=== PATIENT | male | born 1985 | race American Indian/Alaskan Native ===

== ENCOUNTER 2020-11-03 20:36 | Emergency (ER) | payer OTHER ==
[2020-11-03] MEDS ORDERED: LACTATED RINGERS 1,000 ML IV ONE (20:54)
--- NOTE | 2020-11-03 20:58 | Emergency Department Report ---
ED General Adult HPI - General Chief complaint: Multiple Trauma Stated complaint: FALL/HEAD INJURY PUI?: No Time Seen by Provider: 11/03/20 20:51 Source: patient, police, EMS ( EMS documentation not available at time of chart dictation ), RN notes reviewed Mode of arrival: Stretcher Limitations: Altered Mental Status, Physical Limitation - History of Present Illness Initial comments: The patient was evaluated in the emergency department for symptoms described in the history of present illness. He/she was evaluated in the context of the global COVID-19 pandemic, which necessitated consideration that the patient might be at risk for infection with the virus that causes COVID-19. Institutional protocols and algorithms that pertain to the evaluation of patients at risk for COVID-19 are in a state of rapid change based on information released by regulatory bodies including the CDC and federal and state organizations. These policies and algorithms were followed during the patient's care in the emergency department. Please note that these policies, procedures and recommendations changed on a rapid basis. The patient is a 35-year-old male, who is currently incarcerated and in police custody, reportedly on Coumadin, for history of DVT, who was brought to the hospital by emergency medical services in a cervical collar and backboard, after witnessed fall which is presumably mechanical, at the [facility]. On primary survey: Airway: Patent and intact. Breath sounds: Clear to auscultation bilaterally. Circulation: 2+ pulses in the bilateral upper and lower extremities. Blood pressure systolic 150 mmHg. Disability: Patient confused, moves extremities to command, eyes open spontaneously. Protecting airway. In cervical collar. No midline cervical spine tenderness. 13 points Stevie Coma Score E(3) V(4) M(6) [place] Coma Scale Exposure: No obvious penetrating injuries. Secondary survey: Diffuse abdominal tenderness. T and L-spine tenderness. Good rectal tone. Code trauma is called overhead. Patient confused, therefore, not able to describe the qualitative nature of symptoms, exacerbating factors, relieving factors, or aggravating factors. -: This afternoon Quality: other Consistency: other Improves with: other Worsens with: other Associated Symptoms: confusion - Related Data Previous Rx's Medication Instructions Recorded Last Taken Type HYDROcodone/APAP 5-325 [[place] 1 - 2 each PO Q6HR PRN #20 tablet 01/04/15 Unknown Rx 5-325 mg TAB] Ibuprofen [Motrin 800 MG tab] 800 mg PO Q8HR PRN #20 tablet 01/04/15 Unknown Rx cephALEXin [Keflex] 500 mg PO Q6HR #40 capsule 01/04/15 Unknown Rx Allergies Allergy/AdvReac Type Severity Reaction Status Date / Time No Known Allergies Allergy Unverified 01/04/15 15:19 ED Review of Systems ROS: Stated complaint: FALL/HEAD INJURY Other details as noted in HPI Comment: Unobtainable due to pts medical conditions (Patient is confused) ED Past Medical Hx - Social History Smoking Status: Never Smoker Substance Use Type: Alcohol - Medications Home Medications: Home Medications Medication Instructions Recorded Confirmed Last Taken Type HYDROcodone/APAP 5-325 [[place] 1 - 2 each PO Q6HR PRN #20 tablet 01/04/15 Unknown Rx 5-325 mg TAB] Ibuprofen [Motrin 800 MG tab] 800 mg PO Q8HR PRN #20 tablet 01/04/15 Unknown Rx cephALEXin [Keflex] 500 mg PO Q6HR #40 capsule 01/04/15 Unknown Rx ED Physical Exam - General Limitations: Altered Mental Status, Physical Limitation General appearance: in no apparent distress, lethargic - Head Head exam: Present: atraumatic, normocephalic - Eye Eye exam: Present: normal appearance, PERRL, EOMI - ENT ENT exam: Present: normal exam, normal orophraynx, mucous membranes moist, normal external ear exam - Neck Neck exam: Present: normal inspection. Absent: tenderness, meningismus - Respiratory Respiratory exam: Present: normal lung sounds bilaterally. Absent: respiratory distress, wheezes, rales, rhonchi, stridor - Cardiovascular Cardiovascular Exam: Present: regular rate, normal rhythm, normal heart sounds. Absent: bradycardia, tachycardia, irregular rhythm, systolic murmur, diastolic murmur, rubs, gallop - GI/Abdominal GI/Abdominal exam: Present: soft, tenderness. Absent: distended, guarding, rebound, rigid, pulsatile mass - Rectal Rectal exam: Present: normal inspection, normal rectal tone. Absent: black stool, bloody stool - exam: Present: normal inspection External exam: Present: normal external exam - Extremities Exam Extremities exam: Present: normal inspection, other (2+ pulses noted in the bilateral upper and lower extremities. There is no palpable cord. negative Homans sign. Muscular compartments are soft. The pelvis is stable.). Absent: tenderness, calf tenderness - Back Exam Back exam: Present: normal inspection, vertebral tenderness. Absent: tend erness, CVA tenderness (R), CVA tenderness (L) - Neurological Exam Neurological exam: Present: altered, other (There is no facial droop. Patient groans in response to examination. Moves right arm, and legs. Weak flight attendant strength in left arm. Endorses decreased sensation to light touch left arm.. Detailed neurologic examination not possible secondary to confusion) - Skin Skin exam: Present: warm, dry, intact, normal color. Absent: rash ED Course Vital Signs 11/03/20 11/03/20 21:48 23:31 Temperature 97.2 F L 98.1 F Pulse Rate 86 85 Respiratory 18 18 Rate Blood Pressure 151/71 167/100 [Right] O2 Sat by Pulse 98 98 Oximetry - Reevaluation(s) Reevaluation #1: 11/03/20 22:44 Patient is reassessed. He is awake to name, month, and location. He states he knows where he is. CT scan of the brain, cervical spine, thoracic spine, abdomen pelvis negative. The patient complains of neck pain, and lower back pain. He has 3 out of 5 strength in his left upper extremity. He has weak flight attendant strength in his left upper extremity. He has 5-5 strength in his right upper extremity. Repeat GCS 14 points [place] Coma Score E(3) V(5) M(6) [place] Coma Scale Given left upper extremity weakness, numbness, confusion, cannot rule out spinal cord injury. Patient will require evaluation at a trauma center, that has trauma surgery and spine surgery for consultative services. Given that patient is anticoagulated, there may be a component spinal cord/epidural hematoma. Patient did endorse left upper extremity weakness and numbness to myself We do not have access to MRI imaging at this time, therefore, this patient requires emergent MR imaging, in addition to the aforementioned consultative services. I have contacted our neurosurgeon on-call, Dr. Hendrickson, and discussed this patient's history, physical, imaging studies and pertinent laboratory studies. He is in agreement with plan to transfer to a dedicated trauma center. 11/03/20 22:58 Contacted [facility], and discussed the case with Dr. Machado, their trauma surgeon. We discussed the patient's history, physical, pertinent laboratory studies and imaging studies. He advises that anticoagulation reversal not necessary at this time. Patient is accepted to the [facility]. 11/03/20 23:00 11/03/20 23:28 X-ray the chest negative for acute findings. ct of the L-spine negative for acute findings. 11/04/20 01:16 ED Medical Decision Making - Lab Data Result diagrams: 11/03/20 20:59 11/03/20 20:59 Vital Signs 11/03/20 21:48 Temperature 97.2 F L Pulse Rate 86 Respiratory 18 Rate Blood Pressure 151/71 [Right] O2 Sat by Pulse 98 Oximetry Lab Results 11/03/20 11/03/20 11/03/20 Range/Units 20:59 20:59 20:59 WBC 6.4 (4.5-11.0) K/mm3 RBC 4.31 (3.65-5.03) M/mm3 Hgb 14.4 (11.8-15.2) gm/dl Hct 41.7 (35.5-45.6) % MCV 97 H (84-94) fl MCH 34 H (28-32) pg MCHC 35 H (32-34) % RDW 13.4 (13.2-15.2) % Plt Count 228 (140-440) K/mm3 Lymph % (Auto) 23.2 (13.4-35.0) % [place] % (Auto) 10.0 H (0.0-7.3) % Eos % (Auto) 1.4 (0.0-4.3) % Baso % (Auto) 0.4 (0.0-1.8) % Lymph # (Auto) 1.5 (1.2-5.4) K/mm3 [place] # (Auto) 0.6 (0.0-0.8) K/mm3 Eos # (Auto) 0.1 (0.0-0.4) K/mm3 Baso # (Auto) 0.0 (0.0-0.1) K/mm3 Seg Neutrophils % 65.0 (40.0-70.0) % Seg Neutrophils # 4.2 (1.8-7.7) K/mm3 PT 22.7 H (12.2-14.9) Sec. INR 2.01 H (0.87-1.13) APTT 33.7 (24.2-36.6) Sec. Sodium 135 L (137-145) mmol/L Potassium 4.2 (3.6-5.0) mmol/L Chloride 97.0 L (98-107) mmol/L Carbon Dioxide 26 (22-30) mmol/L Anion Gap 16 mmol/L BUN 13 (9-20) mg/dL Creatinine 0.9 (0.8-1.3) mg/dL Estimated GFR > 60 ml/min BUN/Creatinine Ratio 14 % Glucose 98 (75-100) mg/dL Calcium 9.0 (8.4-10.2) mg/dL Magnesium 2.00 (1.7-2.3) mg/dL Total Bilirubin 0.30 (0.1-1.2) mg/dL AST 16 (5-40) units/L ALT 21 (7-56) units/L Alkaline Phosphatase 96 (35-129) units/L Total Creatine Kinase 174 H (55-170) units/L Troponin T < 0.010 (0.00-0.029) ng/mL Total Protein 8.3 H (6.3-8.2) g/dL Albumin 4.6 (3.9-5) g/dL Albumin/Globulin Ratio 1.2 % TSH (0.270-4.200) mlU/mL Salicylates (2.8-20.0) mg/dL Acetaminophen (10.0-30.0) ug/mL Plasma/Serum Alcohol (0-0.07) % Blood Type 11/03/20 11/03/20 11/03/20 Range/Units 20:59 20:59 20:59 WBC (4.5-11.0) K/mm3 RBC (3.65-5.03) M/mm3 Hgb (11.8-15.2) gm/dl Hct (35.5-45.6) % MCV (84-94) fl MCH (28-32) pg MCHC (32-34) % RDW (13.2-15.2) % Plt Count (140-440) K/mm3 Lymph % (Auto) (13.4-35.0) % Plumas % (Auto) (0.0-7.3) % Eos % (Auto) (0.0-4.3) % Baso % (Auto) (0.0-1.8) % Lymph # (Auto) (1.2-5.4) K/mm3 [place]umas # (Auto) (0.0-0.8) K/mm3 Eos # (Auto) (0.0-0.4) K/mm3 Baso # (Auto) (0.0-0.1) K/mm3 Seg Neutrophils % (40.0-70.0) % Seg Neutrophils # (1.8-7.7) K/mm3 PT (12.2-14.9) Sec. INR (0.87-1.13) APTT (24.2-36.6) Sec. Sodium (137-145) mmol/L Potassium (3.6-5.0) mmol/L Chloride (98-107) mmol/L Carbon Dioxide (22-30) mmol/L Anion Gap mmol/L BUN (9-20) mg/dL Creatinine (0.8-1.3) mg/dL Estimated GFR ml/min BUN/Creatinine Ratio % Glucose (75-100) mg/dL Calcium (8.4-10.2) mg/dL Magnesium (1.7-2.3) mg/dL Total Bilirubin (0.1-1.2) mg/dL AST (5-40) units/L ALT (7-56) units/L Alkaline Phosphatase (35-129) units/L Total Creatine Kinase (55-170) units/L Troponin T (0.00-0.029) ng/mL Total Protein (6.3-8.2) g/dL Albumin (3.9-5) g/dL Albumin/Globulin Ratio % TSH (0.270-4.200) mlU/mL Salicylates < 0.3 L (2.8-20.0) mg/dL Acetaminophen 6.3 L (10.0-30.0) ug/mL Plasma/Serum Alcohol < 0.01 (0-0.07) % Blood Type 11/03/20 11/03/20 Range/Units 20:59 20:59 WBC (4.5-11.0) K/mm3 RBC (3.65-5.03) M/mm3 Hgb (11.8-15.2) gm/dl Hct (35.5-45.6) % MCV (84-94) fl MCH (28-32) pg MCHC (32-34) % RDW (13.2-15.2) % Plt Count (140-440) K/mm3 Lymph % (Auto) (13.4-35.0) % [place] % (Auto) (0.0-7.3) % Eos % (Auto) (0.0-4.3) % Baso % (Auto) (0.0-1.8) % Lymph # (Auto) (1.2-5.4) K/mm3 [place] # (Auto) (0.0-0.8) K/mm3 Eos # (Auto) (0.0-0.4) K/mm3 Baso # (Auto) (0.0-0.1) K/mm3 Seg Neutrophils % (40.0-70.0) % Seg Neutrophils # (1.8-7.7) K/mm3 PT (12.2-14.9) Sec. INR (0.87-1.13) APTT (24.2-36.6) Sec. Sodium (137-145) mmol/L Potassium (3.6-5.0) mmol/L Chloride (98-107) mmol/L Carbon Dioxide (22-30) mmol/L Anion Gap mmol/L BUN (9-20) mg/dL Creatinine (0.8-1.3) mg/dL Estimated GFR ml/min BUN/Creatinine Ratio % Glucose (75-100) mg/dL Calcium (8.4-10.2) mg/dL Magnesium (1.7-2.3) mg/dL Total Bilirubin (0.1-1.2) mg/dL AST (5-40) units/L ALT (7-56) units/L Alkaline Phosphatase (35-129) units/L Total Creatine Kinase (55-170) units/L Troponin T (0.00-0.029) ng/mL Total Protein (6.3-8.2) g/dL Albumin (3.9-5) g/dL Albumin/Globulin Ratio % TSH 2.560 (0.270-4.200) mlU/mL Salicylates (2.8-20.0) mg/dL Acetaminophen (10.0-30.0) ug/mL Plasma/Serum Alcohol (0-0.07) % Blood Type A POSITIVE Vital Signs 11/03/20 21:48 Temperature 97.2 F L Pulse Rate 86 Respiratory 18 Rate Blood Pressure 151/71 [Right] O2 Sat by Pulse 98 Oximetry - EKG Data -: EKG Interpreted by [place] EKG shows normal: sinus rhythm Rate: normal - EKG Data When compared to previous EKG there are: previous EKG unavailable 11/03/20 22:06 EKG interpreted at 21: 57 Sinus rhythm, 73 bpm. Normal axis, normal intervals, not a STEMI, early repolarization. No prior for comparison - Radiology Data Radiology results: pending, report reviewed, image reviewed CT BRAIN: 11/03/2020 INDICATION / CLINICAL INFORMATION: Trauma. COMPARISON: None available. FINDINGS: BRAIN/INTRACRANIAL STRUCTURES: Unenhanced CT images of the brain demonstrate no evidence of acute intracranial abnormality. Ventricles and sulci are normal in size and shape. There is no evidence of intracranial hemorrhage or mass. There are no abnormal extra-axial fluid collections. EXTRACRANIAL STRUCTURES: Unremarkable. IMPRESSION: No acute abnormality. All CT scans at this location are performed using dose reduction to ALARA by means of automated exposure control. Signer Name: Javad Cope MD Signed: 11/03/2020 8:36 PM Workstation Name: [id number] CT CERVICAL SPINE: 11/03/2020 INDICATION / CLINICAL INFORMATION: fall ams back pain. COMPARISON: None available. FINDINGS: CT images of the cervical spine were obtained. Images are evaluated in the axial, coronal, and sagittal planes. There is no evidence of acute abnormality. Vertebral body height and alignment is well preserved. There is no evidence of fracture or dislocation. CRANIOCERVICAL JUNCTION: Unremarkable. PARASPINAL STRUCTURES: Unremarkable IMPRESSION: Negative exam All CT scans at this location are performed using dose reduction to ALARA by means of automated exposure control. Signer Name: Javad Cope MD Signed: 11/03/2020 8:38 PM Workstation Name: [id number] [facility] [address] [place] [address] Cat Scan Report Signed Patient: CAYETANO KLEIN MR#: [id number] : 1985 Acct:[id number] Age/Sex: 35 / M ADM Date: 11/03/20 Loc: ED Attending Dr: Ordering Physician: HANNY DENNIS MD Date of Service: 11/03/20 Procedure(s): CT thoracic spine wo con Accession Number(s): [id number] cc: HANNY DENNIS MD CT THORACIC SPINE: 11/03/2020 INDICATION / CLINICAL INFORMATION: fall ams back pain. COMPARISON: None available. FINDINGS: CT images of the thoracic spine were obtained. Images are evaluated in the axial, coronal, and sagittal planes. There is no evidence of acute abnormality. Right convex scoliosis is present. Delores graph vertebral body height and alignment is otherwise normal. PARASPINAL STRUCTURES: Unremarkable IMPRESSION: Negative exam All CT scans at this location are performed using dose reduction to ALARA by means of automated exposure control. Signer Name: Javad Cope MD Signed: 11/03/2020 10:03 PM Workstation Name: [id number] Transcribed By: BENNY Dictated By: Javad Cope MD Electronically Authenticated By: Javad Cope MD Signed Date/Time: 11/03/202202 DD/ 01 Critical care attestation.: If time is entered above; I have spent that time in minutes in the direct care of this critically ill patient, excluding procedure time. ED Disposition Clinical Impression: Anticoagulated, Medical clearance for incarceration, Left arm weakness, Confusion Fall Qualifiers: Encounter type: initial encounter Qualified Code(s): W19.XXXA - Unspecified fall, initial encounter Abdominal pain Qualifiers: Abdominal location: generalized Qualified Code(s): R10.84 - Generalized abdominal pain Disposition: DC/TX-02 SHRT-TRM GEN HOSP IP Is pt being admited?: No Does the pt Need Aspirin: No Condition: Serious Referrals: PRIMARY CARE, [Primary Care Provider] - 3-5 Days
[2020-11-03 21:10] LABS: Basophils % (Auto) 0.4 % (0.0-1.8); Eosinophils # (Auto) 0.1 K/mm3 (0.0-0.4); Eosinophils % (Auto) 1.4 % (0.0-4.3); Hematocrit 41.7 % (35.5-45.6); Hemoglobin 14.4 gm/dl (11.8-15.2); Lymphocytes # (Auto) 1.5 K/mm3 (1.2-5.4); Lymphocytes % (Auto) 23.2 % (13.4-35.0); Mean Corpuscular HGB Conc 35 % (32-34); Mean Corpuscular Volume 97 fl (84-94); Monocytes # (Auto) 0.6 K/mm3 (0.0-0.8); Platelet Count 228 K/mm3 (140-440); Red Blood Count 4.31 M/mm3 (3.65-5.03); Red Cell Distribution Width 13.4 % (13.2-15.2)
[2020-11-03 21:21] LABS: INR 2.01 (0.87-1.13)
[2020-11-03 21:22] LABS: Partial Thromboplastin Time 33.7 Sec. (24.2-36.6)
[2020-11-03 21:28] LABS: Alanine Aminotransferase 21 units/L (7-56); Albumin 4.6 g/dL (3.9-5); BUN/Creatinine Ratio 14; Blood Urea Nitrogen 13 mg/dL (9-20); Hemolysis Index 9
--- NOTE | 2020-11-03 21:41 | Cat Scan Report ---
CT BRAIN: 11/03/2020 INDICATION / CLINICAL INFORMATION: Trauma. COMPARISON: None available. FINDINGS: BRAIN/INTRACRANIAL STRUCTURES: Unenhanced CT images of the brain demonstrate no evidence of acute int racranial abnormality. Ventricles and sulci are normal in size and shape. There is no evidence of intracranial hemorrhage or mass. There are no abnormal extra-axial fluid austyn ections. EXTRACRANIAL STRUCTURES: Unremarkable. IMPRESSION: No acute abnormality. All CT scans at this location are performed using dose reduction to ALARA by means of automated expos ure control. Signer Name: Javad Cope MD Signed: 11/03/2020 9:36 PM Workstation Name: [id number]
--- NOTE | 2020-11-03 21:42 | Cat Scan Report ---
CT CERVICAL SPINE: 11/03/2020 INDICATION / CLINICAL INFORMATION: fall ams back pain. COMPARISON: None available. FINDINGS: CT images of the cervical spine were obtained. Images are evaluated in the axial, coronal, and sagitt al planes. There is no evidence of acute abnormality. Vertebral body height and alignment is well preserved. There is no evidence of fracture or dislocation. CRANIOCERVICAL JUNCTION: Unremarkable. PARASPINAL STRUCTURES: Unremarkable IMPRESSION: Negative exam All CT scans at this location are performed using dose reduction to ALARA by means of automated expos ure control. Signer Name: Javad Cope MD Signed: 11/03/2020 9:38 PM Workstation Name: [id number]
--- NOTE | 2020-11-03 22:07 | Cat Scan Report ---
CT THORACIC SPINE: 11/03/2020 INDICATION / CLINICAL INFORMATION: fall ams back pain. COMPARISON: None available. FINDINGS: CT images of the thoracic spine were obtained. Images are evaluated in the axial, coronal, and sagitt al planes. There is no evidence of acute abnormality. Right convex scoliosis is present. Delores graph vertebral body height and alignment is otherwise normal. PARASPINAL STRUCTURES: Unremarkable IMPRESSION: Negative exam All CT scans at this location are performed using dose reduction to ALARA by means of automated expos ure control. Signer Name: Javad Cope MD Signed: 11/03/2020 10:03 PM Workstation Name: [id number]
--- NOTE | 2020-11-03 22:25 | Cat Scan Report ---
CT ABDOMEN AND PELVIS WITH CONTRAST INDICATION / CLINICAL INFORMATION: Fall with back pain, abd pain, Pt on Coumadin, A.M.S.. TECHNIQUE: Axial CT images were obtained through the abdomen and pelvis after IV contrast. All CT scans at this location are performed using CT dose reduction for ALARA by means of automated exposure control. COMPARISON: None available. FINDINGS: LOWER CHEST: No significant abnormality. LIVER: No significant abnormality. GALLBLADDER: No significant abnormality. BILE DUCTS: No significant abnormality. PANCREAS: No significant abnormality. SPLEEN: No significant abnormality. ADRENALS: No significant abnormality. RIGHT KIDNEY / URETER: No significant abnormality. LEFT KIDNEY / URETER: No significant abnormality. STOMACH / SMALL BOWEL: No significant abnormality. COLON: No significant abnormality. APPENDIX: No significant abnormality. PERITONEUM: No free fluid. No free air. No fluid collection. LYMPH NODES: No significant adenopathy. AORTA / ARTERIES: No significant abnormality. IVC / VEINS: No significant abnormality. URINARY BLADDER: No significant abnormality. REPRODUCTIVE ORGANS: No significant abnormality. ADDITIONAL FINDINGS: None. SKELETAL SYSTEM: No significant abnormality. Specifically no evidence of displaced fractures or aggre ssive osseous lesions. IMPRESSION: 1. No acute traumatic injury to the abdomen or pelvis. Please see above for full details. Signer Name: Que Caballero MD Signed: 11/03/2020 10:21 PM Workstation Name: [id number]
[2020-11-03] MEDS ORDERED: fentaNYL 100 MCG/2 ML INJ IV ONE (23:01)
--- NOTE | 2020-11-03 23:12 | Cat Scan Report ---
CT LUMBAR SPINE WITHOUT CONTRAST INDICATION: Back pain/injury after fall. Altered mental status. COMPARISON: None available. TECHNIQUE: Axial, coronal and sagittal CT imaging of the lumbar spine without contrast was performed. All CT scans at this location are performed using CT dose reduction for ALARA by means of automated exposure control. FINDINGS: VERTEBRAE:No acute fracture. Normal alignment. DISC SPACES: No significant abnormality. FACET JOINTS:No significant abnormality. CENTRAL CANAL: No central canal stenosis or neural foraminal narrowing. SOFT TISSUES:No significant abnormality. ADDITIONAL FINDINGS: None IMPRESSION: 1. No acute findings. Signer Name: Sea Paz MD Signed: 11/03/2020 11:07 PM Workstation Name: [id number]
--- NOTE | 2020-11-03 23:12 | XRay Report ---
CHEST 1 VIEW 11/03/2020 9:57 PM INDICATION / CLINICAL INFORMATION: Chest pain/injury after fall. Altered mental status. COMPARISON: None available. FINDINGS: SUPPORT DEVICES: None. HEART / MEDIASTINUM: No significant abnormality. LUNGS / PLEURA: Clear lungs. No significant pleural effusion. No pneumothorax. ADDITIONAL FINDINGS: No significant additional findings. IMPRESSION: 1. No acute abnormality of the chest. Signer Name: Sea Paz MD Signed: 11/03/2020 11:08 PM Workstation Name: [id number]
[2020-11-03 23:32] VITALS: BP 167/100
--- NOTE | 2020-11-04 10:52 | Electrocardiograph Report ---
[facility] Test Date: 2020-11-03 Test Time: 21:57:51 Pat Name: CAYETANO KLEIN Department: Room: Gender: M [employer] Operator: DARNELL : 1985 Requested By: HANNY DENNIS Order Number: [id number] Reading MD: Pedro Cornell Measurements Intervals [place] Rate: 73 P: 69 AR: 148 QRS: 52 QRSD: 94 T: 45 QT: 368 QTc: 407 Interpretive Statements Sinus rhythm ST elev, probable normal early repol pattern No previous ECG available for comparison Electronically Signed On 11-04-2020 10:51:38 EDT by Pedro Cornell
== END 2020-11-03 23:59 | disposition short-term general hospital (02) ==
LOC: EEVIPCON 20:36 → ED 20:36
DX: R10.84 Generalized abdominal pain (principal); R53.1 Weakness; R41.0 Disorientation, unspecified; R51.9 Headache, unspecified; Z79.01 Long term (current) use of anticoagulants; Z79.899 Other long term (current) drug therapy; W19.XXXA Unspecified fall, initial encounter; Y93.89 Activity, other specified; Y92.89 Other specified places as the place of occurrence of the external cause; Y99.8 Other external cause status
CPT/HCPCS: 36415; 70450; 71045; 72125; 72128; 72131; 74177; 80053; 82550; 83735; 84443; 84484; 85025; 85610; 85730; 86850; 86900; 86901; 93005; 96360; 99285; J7120; Q9967; 80320; G0480

== ENCOUNTER 2021-03-23 00:57 | Emergency (ER) | payer SELFPAY | END 2021-03-23 01:30 | disposition left against medical advice (07) | LOC: ED 00:57 | DX: S51.811A Laceration without foreign body of right forearm, initial encounter (principal); Z53.21 Procedure and treatment not carried out due to patient leaving prior to being seen by health care provider; X58.XXXA Exposure to other specified factors, initial encounter; Y93.89 Activity, other specified; Y92.89 Other specified places as the place of occurrence of the external cause; Y99.8 Other external cause status ==

== ENCOUNTER 2021-03-24 01:11 | Emergency (ER) | payer SELFPAY ==
[2021-03-24] MEDS ORDERED: NEOMY 3.5 MG/BACIT 400 UNITS/POLY B 5000 UNITS/GM OINT PACKET TP ONE (02:44)
[2021-03-24] MEDS ORDERED: IBUPROFEN 600 MG TAB PO ONE (02:44)
[2021-03-24] MEDS ORDERED: SULFAMETHOXAZOLE/TRIMETHOPRIM 800/160MG DS TAB PO ONE (02:45)
--- NOTE | 2021-03-24 02:46 | Emergency Department Report ---
ED Upper Extremity Inj HPI - General Chief Complaint: Wound/Laceration Stated Complaint: LACERATION TO RT ARM Source: patient Mode of arrival: Ambulatory Limitations: No Limitations - History of Present Illness Initial Comments: Patient is a 35-year-old -Thai male with no past medical history presents to the ED with complaint of acute onset persistent right forearm pain and bleeding laceration after he fell on a glass table when wrestling about 26 hours ago. Patient states that the bleeding though well controlled at this time but the wound is still open and wanted to be evaluated. Patient states that he was wrestling when he was pushed and he fell on a glass table. Patient states that he is up-to-date with all his tetanus vaccinations. Patient denies dizz iness, syncope, loss of consciousness, nausea and vomiting, alcoholic intoxication, chest pain or shortness of breath, neck pain or headache or back pain. MD Complaint: Injury to:: right, forearm (Bleeding laceration) -: Sudden, hour(s) (26) Other Extremity Injury: Forearm: Right (Bleeding laceration wound) Other Injuries: none Handedness: right Place: home Severity scale (0 -10): 8 Improves With: movement Worsens With: none Context: fall, injury, sports-related injury (Fell on a glass table during wrestling) Associated Symptoms: denies other symptoms. denies: weakness, numbness, neck pain, suspects foreign body, nausea/vomiting, heard/felt popping sensat - Related Data Previous Rx's Medication Instructions Recorded Last Taken Type HYDROcodone/APAP 5-325 [[place] 1 - 2 each PO Q6HR PRN #20 tablet 01/04/15 Unknown Rx 5-325 mg TAB] Ibuprofen [Motrin 800 MG tab] 800 mg PO Q8HR PRN #20 tablet 01/04/15 Unknown Rx cephALEXin [Keflex] 500 mg PO Q6HR #40 capsule 01/04/15 Unknown Rx Acetaminophen/Codeine [Tylenol 1 tab PO Q6H PRN #12 tab 03/24/21 Unknown Rx /Codeine # 3 tab] Ibuprofen [Motrin] 800 mg PO Q8HR PRN #30 tablet 03/24/21 Unknown Rx Sulfamethoxazole/Trimethoprim 1 each PO Q12H #20 tablet 03/24/21 Unknown Rx [Bactrim DS TAB] Allergies Allergy/AdvReac Type Severity Reaction Status Date / Time No Known Allergies Allergy Verified 03/24/21 02:43 ED Review of Systems ROS: Stated complaint: LACERATION TO RT ARM Other details as noted in HPI Constitutional: denies: chills, fever Eyes: denies: eye pain, eye discharge, vision change ENT: denies: ear pain, throat pain Respiratory: denies: cough, shortness of breath, wheezing Cardiovascular: denies: chest pain, palpitations Endocrine: no symptoms reported Gastrointestinal: denies: abdominal pain, nausea, diarrhea Genitourinary: denies: urgency, dysuria Musculoskeletal: arthralgia (Right forearm pain due to bleeding laceration wound), myalgia. denies: back pain, joint swelling Skin: other (Bleeding right forearm laceration wound). denies: rash, lesions Neurological: denies: headache, weakness, paresthesias Psychiatric: denies: anxiety, depression Hematological/Lymphatic: denies: easy bleeding, easy bruising ED Past Medical Hx - Past Medical History Hx Hypertension: Yes Hx CVA: No Hx Heart Attack/AMI: No Hx Congestive Heart Failure: No Hx Diabetes: No Hx Deep Vein Thrombosis: Yes Hx Pulmonary Embolism: No Hx GERD: No Hx Liver Disease: No Hx Renal Disease: No Hx Sickle Cell Disease: No Hx Arthritis: No Hx Headaches / Migraines: No Hx Seizures: No Hx Kidney Stones: No Hx Psychiatric Treatment: No Hx Asthma: No Hx COPD: No Hx Dementia: No Hx HIV: No - Surgical History Past Surgical History?: No - Social History Smoking Status: Never Smoker Substance Use Type: None - Medications Home Medications: Home Medications Medication Instructions Recorded Confirmed Last Taken Type HYDROcodone/APAP 5-325 [[place] 1 - 2 each PO Q6HR PRN #20 tablet 01/04/15 Unknown Rx 5-325 mg TAB] Ibuprofen [Motrin 800 MG tab] 800 mg PO Q8HR PRN #20 tablet 01/04/15 Unknown Rx cephALEXin [Keflex] 500 mg PO Q6HR #40 capsule 01/04/15 Unknown Rx Acetaminophen/Codeine [Tylenol 1 tab PO Q6H PRN #12 tab 03/24/21 Unknown Rx /Codeine # 3 tab] Ibuprofen [Motrin] 800 mg PO Q8HR PRN #30 tablet 03/24/21 Unknown Rx Sulfamethoxazole/Trimethoprim 1 each PO Q12H #20 tablet 03/24/21 Unknown Rx [Bactrim DS TAB] ED Physical Exam - General Limitations: No Limitations General appearance: alert, in no apparent distress - Head Head exam: Present: atraumatic, normocephalic, normal inspection - Eye Eye exam: Present: normal appearance, PERRL, EOMI Pupils: Present: normal accommodation - ENT ENT exam: Present: normal exam, normal orophraynx, mucous membranes moist, TM's normal bilaterally, normal external ear exam - Neck Neck exam: Present: normal inspection, full ROM - Respiratory Respiratory exam: Present: normal lung sounds bilaterally. Absent: respiratory distress, wheezes, rales, stridor, chest wall tenderness, accessory muscle use, decreased breath sounds - Cardiovascular Cardiovascular Exam: Present: regular rate, normal rhythm, normal heart sounds. Absent: systolic murmur, diastolic murmur, rubs, gallop - GI/Abdominal GI/Abdominal exam: Present: soft, normal bowel sounds. Absent: tenderness, guarding, rebound, hyperactive bowel sounds, hypoactive bowel sounds, organomegaly - Extremities Exam Extremities exam: Present: normal inspection, full ROM, tenderness (Palpable right forearm tenderness due to a bleeding or open 7cm laceration wound), normal capillary refill - Back Exam Back exam: Present: normal inspection, full ROM. Absent: tenderness, CVA tenderness (R), CVA tenderness (L), muscle spasm, paraspinal tenderness, vertebral tenderness - Neurological Exam Neurological exam: Present: alert, oriented X3, CN II-XII intact, normal gait, reflexes normal - Psychiatric Psychiatric exam: Present: normal affect, normal mood - Skin Skin exam: Present: warm, dry, intact, normal color, other (Bleeding, or pain 7 cm laceration wound on right forearm with localized tenderness). Absent: rash ED Course Vital Signs 03/24/21 02:40 Temperature 98.0 F Pulse Rate 89 Respiratory 18 Rate Blood Pressure 142/73 O2 Sat by Pulse 99 Oximetry ED Medical Decision Making - Radiology Data Radiology results: report reviewed, image reviewed [facility] [address] [place] [address] XRay Report Signed Patient: CAYETANO KLEIN MR#: [id number] : 1985 Acct:[id number] Age/Sex: 35 / M ADM Date: 03/24/21 Loc: ED Attending Dr: Ordering Physician: EMI SCHWARTZ Date of Service: 03/24/21 Procedure(s): XR forearm RT Accession Number(s): [id number] cc: EMI SCHWARTZ Fluoro Time In Minutes: Right forearm 2 views INDICATION: Right forearm pain IMPRESSION: Large laceration overlying the right forearm. No fracture identified. Signer Name: Koby Bauer MD Signed: 03/24/2021 5:06 AM Workstation Name: [id number] Transcribed By: BC Dictated By: Koby Bauer MD Electronically Authenticated By: Koby Bauer MD Signed Date/Time: 03/24/21505 DD/ 4 TD/TT: Print Cancel - Medical Decision Making This is a 35-year-old -Thai male with no past medical history pr esents to the ED with complaint of acute onset persistent right forearm pain and bleeding laceration after he fell on a glass table when wrestling about 26 hours ago. Patient states that the bleeding though well controlled at this time but the wound is still open and wanted to be evaluated. Patient states that he was wrestling when he was pushed and he fell on a glass table. Patient states that he is up-to-date with all his tetanus vaccinations. In the ED, patient is alert and oriented x3 and is not in any distress. Patient however appears to be in significant pain. Patient was treated for pain in the ED. Patient is up-to-date with all his vaccinations. The wound was cleaned extensively with normal saline and Betadine solutions. Neosporin was then applied to the wound. Right forearm x-ray showed no acute fractures or subluxations or presence of any foreign bodies within the tissues of the right forearm. The wound was then dressed appropriately. On reevaluation, patient is neurovascularly intact. Patient was therefore discharged home on pain medications and oral antibiotics and advised to follow-up with his primary care physician in 7 to 10 days for reevaluation. Patient was advised to consider following up with the orthopedic surgeon on-call Dr. Riggs for further evaluation. Patient was advised to return to the ED immediately if symptoms get worse. - Differential Diagnosis Forearm fracture; forearm laceration; forearm contusion Critical care attestation.: If time is entered above; I have spent that time in minutes in the direct care of this critically ill patient, excluding procedure time. ED Disposition Clinical Impression: Contusion of right forearm, initial encounter Laceration of right forearm without foreign body Qualifiers: Encounter type: initial encounter Qualified Code(s): S51.811A - Laceration without foreign body of right forearm, initial encounter Disposition: HOME / SELF CARE / HOMELESS Is pt being admited?: No Does the pt Need Aspirin: No Condition: Stable Instructions: Contusion, [id number], Laceration Care, Adult, [id number] Additional Instructions: Take medication with food, drink plenty fluids and follow-up with your primary care physician in 7 to 10 days for reevaluation. Consider following up with the orthopedic surgeon Dr. Riggs for further evaluation of your right forearm injury. Return to the ED immediately if symptoms get worse. Prescriptions: Sulfamethoxazole/Trimethoprim [Bactrim DS TAB] 1 each PO Q12H #20 tablet Ibuprofen [Motrin] 800 mg PO Q8HR PRN #30 tablet PRN Reason: Pain , Severe (7-10) Acetaminophen/Codeine [Tylenol /Codeine # 3 tab] 1 tab PO Q6H PRN #12 tab PRN Reason: Pain , Severe (7-10) Referrals: [facility] [Provider Group] - 3-5 Days ARIADNA RIGGS MD [Staff Physician] - 3-5 Days Time of Disposition: 05:25 Print Language: BANGLADESHI
[2021-03-24] MEDS ORDERED: ONDANSETRON 4 MG ODT TAB PO ONE (02:48)
[2021-03-24] MEDS ORDERED: HYDROcodone/ACETAMINOPHEN 5-325 MG TAB PO ONE (02:48)
[2021-03-24] MEDS ORDERED: LET TOPICAL (LIDOCAINE/EPINEPHRINE/TETRACAINE) 3 ML TP ONE (02:48)
[2021-03-24] MEDS ORDERED: HYDROGEN PEROXIDE 118 ML SOLUTION ONE ×2 (04:00→04:16)
[2021-03-24] MEDS ORDERED: SODIUM CHLORIDE IRRI 500 ML 1,000 ML IR ONE (04:05)
--- NOTE | 2021-03-24 05:11 | XRay Report ---
Right forearm 2 views INDICATION: Right forearm pain IMPRESSION: Large laceration overlying the right forearm. No fracture identified. Signer Name: Koby Bauer MD Signed: 03/24/2021 5:06 AM Workstation Name: [id number]
[2021-03-24 05:50] VITALS: BP 135/94
== END 2021-03-24 05:53 | disposition home or self-care (01) ==
LOC: ED 01:11
DX: S51.812A Laceration without foreign body of left forearm, initial encounter (principal); I10 Essential (primary) hypertension; Z79.899 Other long term (current) drug therapy; W25.XXXA Contact with sharp glass, initial encounter; Y93.89 Activity, other specified; Y92.89 Other specified places as the place of occurrence of the external cause; Y99.8 Other external cause status
CPT/HCPCS: 73090; 99283; A6250; Q0162